=== PATIENT | female | born 1960 | race Caucasian/White ===

== ENCOUNTER 2016-06-27 08:59 | Day surgery (SDC) | payer OTHER ==
[~2016-06-27 08:59] MED LIST: PROPOFOL INJ 200 MG/20 ML VIAL IV ONE
[2016-06-27 11:08] VITALS: BP 111/64
--- NOTE | 2016-06-27 13:21 | Operative Report ---
Operative Report DATE OF SURGERY: 06/27/16 Operative Report: The risks, benefits and alternatives of the procedure including risks of bleeding, perforation requiring surgery explained to the patient detail and informed consent was obtained. Patient was taken back to the endoscopy suite placed in the left, lateral decubital position. Timeout was called. Propofol medications administered. A rectal examination was done which did not reveal any masses, tears or fissures. An Olympus endoscope was inserted into the patient's rectum. The scope was then gradually advanced all the way to the cecum. The cecum was identified by the usual anatomical landmarks including the ileocecal valve as well as appendiceal office. Photodocumentation was obtained. Prep is good. At the area of the cecum there appeared to be a little bit of inflammation. Therefore I went ahead to intubate the terminal ileum. There is mild terminal ileitis. Biopsies obtained. The scope was then sequentially pulled back out. The rest segments of the colon including the ascending colon, hepatic flexure, transverse colon, splenic flexure, descending colon extending to the rectosigmoid portions of the colon. Retroflexion maneuver was performed. PREOPERATIVE DIAGNOSIS: Colorectal cancer screening POSTOPERATIVE DIAGNOSIS: Normal colon screening. Mild ileitis at the terminal ileum status post biopsy OPERATION: Colonoscopy with biopsy SURGEON: SHON ENRIQUEZ ANESTHESIA: LMAC TISSUE REMOVED OR ALTERED: As described above COMPLICATIONS: None. ESTIMATED BLOOD LOSS: None. INTRAOPERATIVE FINDINGS: No AVMs, diverticulosis or polyps noted. PROCEDURE: Patient tolerated the procedure well. No immediate postprocedure complications are noted. Patient discharged in good condition. Discharge date 06/27/2016. Discharge diet: Regular. Discharge activity: Regular. 2-3 week follow-up to discuss findings. Patient is instructed to call the office or proceed to the emergency room should there be any further problems or questions. We will wait on biopsies. 10 year surveillance should be adequate.
== END 2016-06-27 11:00 | disposition home or self-care (01) ==
LOC: END 08:59
PROVIDERS: ATTEND Internal Medicine Gastroenterology
PROC: 0DBB8ZX Excision of Ileum, Via Natural or Artificial Opening Endoscopic, Diagnostic (ICD-10-PCS; principal; 2016-06-27 11:00)
DX: Z12.11 Encounter for screening for malignant neoplasm of colon (principal); K52.9 Noninfective gastroenteritis and colitis, unspecified; K64.8 Other hemorrhoids; G43.909 Migraine, unspecified, not intractable, without status migrainosus; Z79.899 Other long term (current) drug therapy; Z79.891 Long term (current) use of opiate analgesic
CPT/HCPCS: 45380; 88305 ×2; J2704; 810